=== PATIENT | female | born 2000 | race Caucasian/White ===

== ENCOUNTER 2020-07-01 01:04 | Inpatient (IN) | payer MEDICAID ==
[2020-07-01] MEDS ORDERED: Penicillin G Potassium 5 MILLUNITS in Sodium Chloride 0.9% 50 ML IV ONE (02:30)
[2020-07-01] MEDS: Lactated Ringers 1,000 ML IV SCH ×2 (02:39→11:49)
[2020-07-01] MEDS ORDERED: Sodium Chloride 0.9% 50 ML ONE (06:15)
[2020-07-01] MEDS: Penicillin G Potassium 2.5 MILLUNITS in Sodium Chloride 0.9% 50 ML IV SCH ×4 (06:24→18:49)
[2020-07-01] MEDS ORDERED: Sodium Chloride 0.9% 10 ML Syringe FLUSH PRN ×2 (07:20→08:21)
[2020-07-01] MEDS ORDERED: Calcium Carbonate 500 MG Tab.Chew PO PRN (07:20)
[2020-07-01] MEDS ORDERED: Ondansetron 4 MG/2 ML SDV IV PRN (07:20)
--- NOTE | 2020-07-01 07:32 | PCM.LDHP ---
L&D History of Present Illness - General Date of Service: 07/01/20 Admit Problem/Dx: Patient Status Order with Admit Dx/Problem 07/01/20 02:00 Admission Status [Patient Status] [ADT] Routine Admission Diagnosis/Problem Admission Diagnosis/Problem Labor established Source of Information: Patient History Limitations: Reports: No Limitations - History of Present Illness Introduction:: 07/01/20 Alma is a 20 yo here with SROM at home around midnight today at 40 0/7 weeks gestation. She started sarah about 45 minutes after SROM at home. Clear fluid. She has had an uncomplicated . Her significant other is here by her side. She has a hemoglobin of 11.6. She is COVID negative and GBS positive and has received one dose of antibiotics so far. Blood type is A positive, all STI screenings negative, rubella immune. They are expecting a boy. US was done at 36 weeks and showed baby at 38%. She is doing very well using the tub and nitrous for pain relief. She would like an epidural at some point. Timing/Duration: Reports: minutes: (2-3) Location, : Reports: Abdomen, Lower back Quality: Reports: Pressure Severity: Moderate Improves with: Reports: Rest, Other (Nitrous oxide) Worsens with: Reports: None Associated Symptoms: Reports: vaginal fluid. Denies: vaginal bleeding - Related Data Allergies/Adverse Reactions: Allergies Allergy/AdvReac Type Severity Reaction Status Date / Time No Known Allergies Allergy Verified 07/01/20 02:26 Home Medications: Home Meds Magnesium 250 mg PO DAILY 07/01/20 [History] Vits #93/Iron Fum/FA [ Formula Tablet] 1 each PO DAILY 07/01/20 [History] Past Medical History HEENT History: Reports: None Cardiovascular History: Reports: None Respiratory History: Reports: None Gastrointestinal History: Reports: None Genitourinary History: Reports: None BREAKFAST HOSTESS History: Reports: : 1 Para: 0 LMP (Approximate): Musculoskeletal History: Reports: None Neurological History: Reports: None Psychiatric History: Reports: None Endocrine/Metabolic History: Reports: None Hematologic History: Reports: None Immunologic History: Reports: None Oncologic (Cancer) History: Reports: None Dermatologic History: Reports: None - Infectious Disease History Infectious Disease History: Reports: None - Past Surgical History Head Surgeries/Procedures: Reports: None HEENT Surgical History: Reports: None Cardiovascular Surgical History: Reports: None Respiratory Surgical History: Reports: None GI Surgical History: Reports: None Female Surgical History: Reports: None Endocrine Surgical History: Reports: None Neurological Surgical History: Reports: None Musculoskeletal Surgical History: Reports: None Oncologic Surgical History: Reports: None Dermatological Surgical History: Reports: None Social & Family History - Tobacco Use Tobacco Use Status *Q: Never Tobacco User Second Hand Smoke Exposure: No - Caffeine Use Caffeine Use: Reports: Coffee, Energy Drinks, Soda, Tea - Recreational Drug Use Recreational Drug Use: No H&P Review of Systems - Review of Systems: Review Of Systems: See Below General: Reports: No Symptoms HEENT: Reports: No Symptoms Pulmonary: Reports: No Symptoms Cardiovascular: Reports: No Symptoms Gastrointestinal: Reports: No Symptoms Genitourinary: Reports: No Symptoms Musculoskeletal: Reports: No Symptoms Skin: Reports: No Symptoms Psychiatric: Reports: No Symptoms Neurological: Reports: No Symptoms Hematologic/Lymphatic: Reports: No Symptoms Immunologic: Reports: No Symptoms L&D Exam - Exam Exam: See Below - Vital Signs Vital Signs: Last Vital Signs Temp 35.7 C L 07/01/20 06:47 Pulse 84 07/01/20 06:47 Resp 18 07/01/20 06:47 BP 134/88 07/01/20 06:47 Pulse Ox 98 07/01/20 06:47 Weight: 119.295 kg - OB Specific Contraction Duration (sec): 50-100 Contraction Frequency (min): 1.5-2.5 Contraction Intensity: Moderate Movement: Active Heart Tones: Present Heart Tones per Min: 140 Heart Rate (FHR) Variability: Moderate (6-25 bmp) Presentation: Vertex Estimated Weight: 7.5 lbs - Exam General: Alert, Oriented HEENT: PERRLA, Conjunctiva Clear, EACs Clear, Hearing Intact, Mucosa Moist & [place], Nares Patent, Normal Nasal Septum, Pupils Equal, Pupils Reactive Neck: Supple, Trachea Midline Lungs: Clear to Auscultation, Normal Respiratory Effort Cardiovascular: Regular Rate, Regular Rhythm. No: Systolic Murmur, Diastolic Murmur GI/Abdominal Exam: Normal Bowel Sounds, Soft, Non-Tender, No Organomegaly, No Distention, No Abnormal Bruit, No Mass, Pelvis Stable Rectal Exam: Normal Exam Genitourinary: Normal external exam, Normal bimanual exam, Cervical dilitation, Enlarged uterus Back Exam: Normal Inspection, Full Range of Motion Extremities: Normal Inspection, Normal Range of Motion, Non-Tender, No Pedal Edema, Normal Capillary Refill Skin: Warm, Dry, Intact Neurological: Cranial Nerves Intact Psychiatric: Alert, Normal Affect, Normal Mood - Patient Data Lab Results Last 24 hrs: Laboratory Results - last 24 hr 07/01/20 07/01/20 07/01/20 Range/Units 01:10 01:10 01:56 WBC (4.5-11.0) K/uL RBC (3.30-5.50) M/uL Hgb (12.0-15.0) g/dL Hct (36.0-48.0) % MCV (80-98) fL MCH (27-31) pg MCHC (32-36) % Plt Count (150-400) K/uL Neut % (Auto) (36-66) % Lymph % (Auto) (24-44) % Gage % (Auto) (2-6) % Eos % (Auto) (2-4) % Baso % (Auto) (0-1) % Urine Color Yellow (YELLOW) Urine Appearance Cloudy A (CLEAR) Urine pH 7.0 (5.0-8.0) Ur Specific [place] 1.020 (1.008-1.030) Urine Protein 30 H (NEGATIVE) mg/dL Urine Glucose (UA) Negative (NEGATIVE) mg/dL Urine Ketones Negative (NEGATIVE) mg/dL Urine Occult Blood Moderate H (NEGATIVE) Urine Nitrite Negative (NEGATIVE) Urine Bilirubin Negative (NEGATIVE) Urine Urobilinogen 0.2 (0.2-1.0) EU/dL Ur Leukocyte Esterase Negative (NEGATIVE) Urine RBC 30-40 H (0-5) Urine WBC 5-10 H (0-5) Ur Epithelial Cells Many Amorphous Sediment Not seen Urine Bacteria Moderate Urine Mucus Not seen Membrane Rupture Positive H (NEGATIVE) Urine Opiates Screen Negative (NEGATIVE) Ur Oxycodone Screen Negative (NEGATIVE) Urine Methadone Screen Negative (NEGATIVE) Ur Propoxyphene Screen Negative (NEGATIVE) Ur Barbiturates Screen Negative (NEGATIVE) Ur Tricyclics Screen Negative (NEGATIVE) Ur Phencyclidine Scrn Negative (NEGATIVE) Ur Amphetamine Screen Negative (NEGATIVE) U Methamphetamines Scrn Negative (NEGATIVE) Urine MDMA Screen Negative (NEGATIVE) U Benzodiazepines Scrn Negative (NEGATIVE) U Cocaine Metab Screen Negative (NEGATIVE) U Marijuana (THC) Screen Negative (NEGATIVE) SARS CoV-2 RNA Rapid CARMELA 07/01/20 07/01/20 Range/Units 02:03 02:41 WBC 12.3 H (4.5-11.0) K/uL RBC 4.07 (3.30-5.50) M/uL Hgb 11.6 L (12.0-15.0) g/dL Hct 35.8 L (36.0-48.0) % MCV 88 (80-98) fL MCH 29 (27-31) pg MCHC 32 (32-36) % Plt Count 207 (150-400) K/uL Neut % (Auto) 78 H (36-66) % Lymph % (Auto) 13 L (24-44) % Gage % (Auto) 6 (2-6) % Eos % (Auto) 2 (2-4) % Baso % (Auto) 0 (0-1) % Urine Color (YELLOW) Urine Appearance (CLEAR) Urine pH (5.0-8.0) Ur Specific [place] (1.008-1.030) Urine Protein (NEGATIVE) mg/dL Urine Glucose (UA) (NEGATIVE) mg/dL Urine Ketones (NEGATIVE) mg/dL Urine Occult Blood (NEGATIVE) Urine Nitrite (NEGATIVE) Urine Bilirubin (NEGATIVE) Urine Urobilinogen (0.2-1.0) EU/dL Ur Leukocyte Esterase (NEGATIVE) Urine RBC (0-5) Urine WBC (0-5) Ur Epithelial Cells Amorphous Sediment Urine Bacteria Urine Mucus Membrane Rupture (NEGATIVE) Urine Opiates Screen (NEGATIVE) Ur Oxycodone Screen (NEGATIVE) Urine Methadone Screen (NEGATIVE) Ur Propoxyphene Screen (NEGATIVE) Ur Barbiturates Screen (NEGATIVE) Ur Tricyclics Screen (NEGATIVE) Ur Phencyclidine Scrn (NEGATIVE) Ur Amphetamine Screen (NEGATIVE) U Methamphetamines Scrn (NEGATIVE) Urine MDMA Screen (NEGATIVE) U Benzodiazepines Scrn (NEGATIVE) U Cocaine Metab Screen (NEGATIVE) U Marijuana (THC) Screen (NEGATIVE) SARS CoV-2 RNA Rapid CARMELA Negative Result Diagrams: 07/01/20 02:03 - Problem List (1) SROM (spontaneous rupture of membranes) SNOMED Code(s): 110269537 ICD Code: [id number] - Status: Acute Current Visit: Yes (2) Term SNOMED Code(s): 42639416 ICD Code: Z34.90 - ENCNTR FOR SUPRVSN OF NORMAL , UNSP, UNSP TRI MESTER Status: Acute Current Visit: Yes (3) Labor established SNOMED Code(s): 29531707 ICD Code: WPX1843 - Status: Acute Current Visit: Yes Problem List Initiated/Reviewed/Updated: Yes Orders Last 24hrs: Active Orders 24 hr Category Date Time Status Admission Status [Patient Status] [ADT] Routine ADT 07/01/20 02:00 Active Communication Order [RC] ASDIRECTED Care 07/01/20 07:20 Ordered Communication Order [RC] Per Unit Routine Care 07/01/20 06:33 Active Communication Order [RC] Per Unit Routine Care 07/01/20 06:33 Active Communication Order [RC] Per Unit Routine Care 07/01/20 06:33 Active Communication Order [RC] Per Unit Routine Care 07/01/20 06:33 Active Heart Tones [RC] PER UNIT ROUTINE Care 07/01/20 07:20 Ordered Nitrous Oxide Delivery [RC] ASDIRECTED Care 07/01/20 06:33 Active Notify Provider Vital Signs [RC] PRN Care 07/01/20 04:00 Ordered Notify Provider [RC] PRN Care 07/01/20 07:20 Ordered OB Check [OM.PC] Click to Edit Care 07/01/20 01:09 Ordered Oxygen Therapy [RC] ASDIRECTED Care 07/01/20 06:33 Active Pulse Oximetry [RC] ASDIRECTED Care 07/01/20 06:33 Active Up ad Emily [RC] ASDIRECTED Care 07/01/20 07:20 Ordered VTE/DVT Education [RC] Click to Edit Care 07/01/20 07:22 Ordered Verify Patient Consent Obtain [RC] ASDIRECTED Care 07/01/20 06:33 Active Vital Signs [RC] PER UNIT ROUTINE Care 07/01/20 06:33 Active Vital Signs [RC] PER UNIT ROUTINE Care 07/01/20 07:20 Ordered Regular Diet [DIET] Diet 07/01/20 Breakfast Ordered Calcium Carbonate [Tums] Med 07/01/20 07:20 Ordered 1,000 mg PO Q2HR PRN Lactated Ringers [Ringers, Lactated] 1,000 ml Med 07/01/20 02:30 Active IV ASDIRECTED Ondansetron [Zofran] Med 07/01/20 07:20 Ordered 4 mg IV Q4H PRN Oxytocin/Normal Saline [Pitocin in NS 20 Units/1,000 ML Med 07/01/20 07:00 Active ] 20 unit in 1,000 ml IV ONETIME Penicillin G Potassium [Pfizerpen] 2.5 millunits Med 07/01/20 06:30 Active Sodium Chloride 0.9% [Normal Saline] 50 ml IV Q4H Sodium Chloride 0.9% [Saline Flush] Med 07/01/20 07:20 Ordered 10 ml FLUSH ASDIRECTED PRN DVT/VTE Prophylaxis Reflex [OM.PC] Routine Oth 07/01/20 07:20 Ordered Medication Discontinuation Instructions [OM.PC] Routine Oth 07/01/20 06:33 Ordered Saline Lock Insert [OM.PC] Routine Oth 07/01/20 07:20 Ordered Resuscitation Status Routine Resus Stat 07/01/20 07:20 Ordered Medication Orders Calcium Carbonate/Glycine (Tums) 1,000 mg PO Q2HR PRN PRN Reason: Indigestion Penicillin G Potassium 2.5 (millunits/ Sodium Chloride) 50 mls @ 100 mls/hr IV Q4H [facility] Last Admin: 07/01/20 06:24 Dose: 100 mls/hr Documented by: THAD Lactated Ringer's (Ringers, Lactated) 1,000 mls @ 100 mls/hr IV ASDIRECTED [facility] Last Admin: 07/01/20 02:39 Dose: 100 mls/hr Documented by: THAD Oxytocin/Sodium Chloride (Pitocin In Ns 20 Units/1,000 Ml) 20 unit in 1,000 mls @ 999 mls/hr IV ONETIME ONE; Protocol Stop: 07/01/20 08:00 Ondansetron HCl (Zofran) 4 mg IV Q4H PRN PRN Reason: Nausea/Vomiting Sodium Chloride (Saline Flush) 10 ml FLUSH ASDIRECTED PRN PRN Reason: Keep Vein Open Assessment/Plan Comment:: 07/01/20 Assessment: here with SROM of clear fluid and spontaneous labor SVE last 4-5 cm GBS positive A positive blood type Rubella immune HIV/hep C/B/RPR all NR Category 1 tracing Plan: Expectant management Plans epidural, using nitrous oxide now Anticipate of male infant
[2020-07-01] MEDS ORDERED: ePHEDrine 50 MG/ML SDV IVPUSH PRN ×3 (08:21→22:05)
[2020-07-01] MEDS ORDERED: Lactated Ringers 1,000 ML IV ONE (08:21)
[2020-07-01] MEDS ORDERED: Naloxone 0.4 MG/ML SDV IVPUSH PRN ×2 (08:21→22:05)
[2020-07-01] MEDS ORDERED: diphenhydrAMINE 50 MG/ML SDV IVPUSH PRN ×3 (08:21→22:05)
[2020-07-01] MEDS ORDERED: Ropivacaine 100 ML ONE ×2 (08:54→15:32)
--- NOTE | 2020-07-01 10:00 | PCM.PNLD ---
Labor Progress Note - VS & Meds Vital Signs: Last Vital Signs Temp 35.3 C L 07/01/20 09:13 Pulse 84 07/01/20 09:27 Resp 16 07/01/20 09:27 BP 125/73 07/01/20 09:27 Pulse Ox 95 07/01/20 09:27 Active Medications: Current Medications Calcium Carbonate/Glycine (Tums) 1,000 mg PO Q2H PRN PRN Reason: Indigestion Diphenhydramine HCl (Benadryl) 25 mg IVPUSH Q6H PRN PRN Reason: Itching Diphenhydramine HCl (Benadryl) 50 mg IVPUSH Q6H PRN PRN Reason: Itching Ephedrine Sulfate (Ephedrine Sulfate) 10 mg IVPUSH ASDIRECTED PRN PRN Reason: Hypotension Penicillin G Potassium 2.5 (millunits/ Sodium Chloride) 50 mls @ 100 mls/hr IV Q4H [facility] Last Admin: 07/01/20 06:24 Dose: 100 mls/hr Documented by: Lactated Ringer's (Ringers, Lactated) 1,000 mls @ 100 mls/hr IV ASDIRECTED [facility] Last Infusion: 07/01/20 08:00 Dose: 999 mls/hr Documented by: Naloxone HCl (Narcan) 0.1 mg IVPUSH ASDIRECTED PRN PRN Reason: Oversedation Ondansetron HCl (Zofran) 4 mg IV Q4H PRN PRN Reason: Nausea/Vomiting Sodium Chloride (Saline Flush) 10 ml FLUSH ASDIRECTED PRN PRN Reason: Keep Vein Open Discontinued Medications Penicillin G Potassium 5 (millunits/ Sodium Chloride) 50 mls @ 100 mls/hr IV ONETIME ONE Stop: 07/01/20 02:59 Last Admin: 07/01/20 02:36 Dose: 100 mls/hr Documented by: Oxytocin/Sodium Chloride (Pitocin In Ns 20 Units/1,000 Ml) 20 unit in 1,000 mls @ 999 mls/hr IV ONETIME ONE; Protocol Stop: 07/01/20 08:00 Sodium Chloride (Normal Saline) Confirm Administered Dose 50 mls @ as directed .ROUTE .STK-MED ONE Stop: 07/01/20 06:16 Last Admin: 07/01/20 06:25 Dose: Not Given Documented by: Lactated Ringer's (Ringers, Lactated) 1,000 mls @ 999 mls/hr IV .BOLUS ONE Stop: 07/01/20 09:21 Last Admin: 07/01/20 09:01 Dose: 999 mls/hr Documented by: Ropivacaine (Naropin 0.2%) Confirm Administered Dose 100 mls @ as directed .ROUTE .STK-MED ONE Stop: 07/01/20 08:55 - Uterine Contractions Uterine Monitoring Mode: External [place] Contraction Frequency (min): 2-4 Contraction Duration (sec): 40-60 Contraction Intensity: Moderate Uterine Resting Tone: Soft - Monitoring Monitor Mode: External Ultrasound Heart Rate (FHR) Variability: Moderate (6-25 bmp) Accelerations: Present, 15x15 Decelerations: None - Vaginal Exam Dilation (cm): 5-6 Effacement (Percent): 80 Cervical Position: Midposition Sterile Vaginal Exam Performed By: Nasreen Adame - Labor Progress (Free Text) Labor Progress: 07/01/[address] and patient is comfortable on peanut ball. Category 1 tracing. Continue expectant monitoring. Anticipate .
--- NOTE | 2020-07-01 10:26 | ANES ---
DATE OF SERVICE: 07/01/2020 TIME: 8:45. INDICATIONS: I was called to the Labor and Delivery Unit to evaluate Ms. Dueñas for a labor epidural. She is approximately 5 to 6 cm, this is her first baby. Risks and benefits of procedure were explained to the patient, she wished to proceed with labor epidural. TECHNIQUE: She was placed in a sitting position. Her back was prepped x3 with Betadine, 1% lidocaine skin local was used. The epidural was placed at L3-4 using a 17-gauge Tuohy needle in loss of resistance technique. The epidural had very good feel throughout, and the epidural space was easily identified. There was negative CSF, negative blood, and negative paresthesias noted; therefore, a catheter was threaded to 14 cm at the skin. There was negative CSF, negative blood, and negative paresthesias with the catheter. Therefore, the catheter was secured with Tegaderm and tape. A 1.5% lidocaine test dose with epinephrine was given, and this test dose was negative. The catheter was then secured. She was placed in a supine position. A 0.2% ropivacaine bolus of 12 mL given. The bolus had good relief. Therefore, 0.2% ropivacaine drip was started at 12 mL/h. Her vital signs remained stable throughout the procedure and nurse was with me for the entire procedure. We will continue to monitor her throughout her labor and delivery. Ephraim Hua CRNA /[id number]
--- NOTE | 2020-07-01 11:13 | PCM.PNLD ---
Labor Progress Note - VS & Meds Vital Signs: Last Vital Signs Temp 35.3 C L 07/01/20 09:13 Pulse 89 07/01/20 09:48 Resp 16 07/01/20 09:48 BP 125/77 07/01/20 09:48 Pulse Ox 98 07/01/20 09:48 Active Medications: Current Medications Calcium Carbonate/Glycine (Tums) 1,000 mg PO Q2H PRN PRN Reason: Indigestion Diphenhydramine HCl (Benadryl) 25 mg IVPUSH Q6H PRN PRN Reason: Itching Diphenhydramine HCl (Benadryl) 50 mg IVPUSH Q6H PRN PRN Reason: Itching Ephedrine Sulfate (Ephedrine Sulfate) 10 mg IVPUSH ASDIRECTED PRN PRN Reason: Hypotension Penicillin G Potassium 2.5 (millunits/ Sodium Chloride) 50 mls @ 100 mls/hr IV Q4H [facility] Last Admin: 07/01/20 10:36 Dose: 100 mls/hr Documented by: Lactated Ringer's (Ringers, Lactated) 1,000 mls @ 100 mls/hr IV ASDIRECTED [facility] Last Infusion: 07/01/20 08:00 Dose: 999 mls/hr Documented by: Oxytocin/Sodium Chloride (Pitocin In Ns 20 Units/1,000 Ml) 20 unit in 1,000 mls @ 6 mls/hr IV TITRATE [facility]; Protocol Naloxone HCl (Narcan) 0.1 mg IVPUSH ASDIRECTED PRN PRN Reason: Oversedation Ondansetron HCl (Zofran) 4 mg IV Q4H PRN PRN Reason: Nausea/Vomiting Sodium Chloride (Saline Flush) 10 ml FLUSH ASDIRECTED PRN PRN Reason: Keep Vein Open Discontinued Medications Penicillin G Potassium 5 (millunits/ Sodium Chloride) 50 mls @ 100 mls/hr IV ONETIME ONE Stop: 07/01/20 02:59 Last Admin: 07/01/20 02:36 Dose: 100 mls/hr Documented by: Oxytocin/Sodium Chloride (Pitocin In Ns 20 Units/1,000 Ml) 20 unit in 1,000 mls @ 999 mls/hr IV ONETIME ONE; Protocol Stop: 07/01/20 08:00 Sodium Chloride (Normal Saline) Confirm Administered Dose 50 mls @ as directed .ROUTE .STK-MED ONE Stop: 07/01/20 06:16 Last Admin: 07/01/20 06:25 Dose: Not Given Documented by: Lactated Ringer's (Ringers, Lactated) 1,000 mls @ 999 mls/hr IV .BOLUS ONE Stop: 07/01/20 09:21 Last Admin: 07/01/20 09:01 Dose: 999 mls/hr Documented by: Ropivacaine (Naropin 0.2%) Confirm Administered Dose 100 mls @ as directed .ROUTE .STK-MED ONE Stop: 07/01/20 08:55 - Uterine Contractions Uterine Monitoring Mode: External [place] Contraction Frequency (min): 3 Contraction Duration (sec): 50-70 Contraction Intensity: Moderate Uterine Resting Tone: Soft - Monitoring Monitor Mode: External Ultrasound Heart Rate (FHR) Variability: Moderate (6-25 bmp) Accelerations: Present, 15x15 Decelerations: None - Vaginal Exam Dilation (cm): 7 Effacement (Percent): 80 Station: -1 Cervical Position: Midposition Sterile Vaginal Exam Performed By: Nasreen Adame - Labor Progress (Free Text) Labor Progress: 07/01/20 Patient is comfortable with epidural. SVE 7/80/-1 with some caput noted. Contractions are not regularly spaced and she has made slow cervical exchange administrator the last 3 hours so we discussed doing very low dose pitocin to get a nice contraction pattern and patient agrees. Continues to leak clear fluid. Category 1 tracing still with intermittent possible shallow variable decelerations. Continue to monitor progress and FHT's.
--- NOTE | 2020-07-01 11:57 | PCM.PNLD ---
Labor Progress Note - VS & Meds Vital Signs: Last Vital Signs Temp 35.3 C L 07/01/20 09:13 Pulse 89 07/01/20 09:48 Resp 16 07/01/20 09:48 BP 125/77 07/01/20 09:48 Pulse Ox 98 07/01/20 09:48 Active Medications: Current Medications Calcium Carbonate/Glycine (Tums) 1,000 mg PO Q2H PRN PRN Reason: Indigestion Diphenhydramine HCl (Benadryl) 25 mg IVPUSH Q6H PRN PRN Reason: Itching Diphenhydramine HCl (Benadryl) 50 mg IVPUSH Q6H PRN PRN Reason: Itching Ephedrine Sulfate (Ephedrine Sulfate) 10 mg IVPUSH ASDIRECTED PRN PRN Reason: Hypotension Penicillin G Potassium 2.5 (millunits/ Sodium Chloride) 50 mls @ 100 mls/hr IV Q4H COUNTS INCLUDE 234 BEDS AT THE [facility] Last Admin: 07/01/20 10:36 Dose: 100 mls/hr Documented by: Lactated Ringer's (Ringers, Lactated) 1,000 mls @ 100 mls/hr IV ASDIRECTED COUNTS INCLUDE 234 BEDS AT THE [facility] Last Admin: 07/01/20 11:49 Dose: 25 mls/hr Documented by: Oxytocin/Sodium Chloride (Pitocin In Ns 20 Units/1,000 Ml) 20 unit in 1,000 mls @ 6 mls/hr IV TITRATE COUNTS INCLUDE 234 BEDS AT THE [facility]; Protocol Last Admin: 07/01/20 11:16 Dose: 2 munits/min, 6 mls/hr Documented by: Naloxone HCl (Narcan) 0.1 mg IVPUSH ASDIRECTED PRN PRN Reason: Oversedation Ondansetron HCl (Zofran) 4 mg IV Q4H PRN PRN Reason: Nausea/Vomiting Sodium Chloride (Saline Flush) 10 ml FLUSH ASDIRECTED PRN PRN Reason: Keep Vein Open Discontinued Medications Penicillin G Potassium 5 (millunits/ Sodium Chloride) 50 mls @ 100 mls/hr IV ONETIME ONE Stop: 07/01/20 02:59 Last Admin: 07/01/20 02:36 Dose: 100 mls/hr Documented by: Oxytocin/Sodium Chloride (Pitocin In Ns 20 Units/1,000 Ml) 20 unit in 1,000 mls @ 999 mls/hr IV ONETIME ONE; Protocol Stop: 07/01/20 08:00 Sodium Chloride (Normal Saline) Confirm Administered Dose 50 mls @ as directed .ROUTE .STK-MED ONE Stop: 07/01/20 06:16 Last Admin: 07/01/20 06:25 Dose: Not Given Documented by: Lactated Ringer's (Ringers, Lactated) 1,000 mls @ 999 mls/hr IV .BOLUS ONE Stop: 07/01/20 09:21 Last Admin: 07/01/20 09:01 Dose: 999 mls/hr Documented by: Ropivacaine (Naropin 0.2%) Confirm Administered Dose 100 mls @ as directed .ROUTE .STK-MED ONE Stop: 07/01/20 08:55 - Uterine Contractions Uterine Monitoring Mode: External [place] Contraction Frequency (min): 3 Contraction Duration (sec): 50-70 Contraction Intensity: Moderate Uterine Resting Tone: Soft - Monitoring Monitor Mode: External Ultrasound Heart Rate (FHR) Variability: Moderate (6-25 bmp) Accelerations: Present, 15x15 Decelerations: None - Vaginal Exam Dilation (cm): 7 Effacement (Percent): 80 Station: -1 Cervical Position: Midposition Sterile Vaginal Exam Performed By: Nasreen Adame - Labor Progress (Free Text) Labor Progress: 07/01/20 RN called shortly after pitocin was started reporting late decelerations. Pitocin was turned off, patient rolled, oxygen on and fluid bolus given. No decelerations now after pitocin was discontinued. Continue to have good variability with accelerations. IUPC placed due to difficult time picking up contractions due to body habitus and needing to be able to accurately monitor decelerations. If contractions are adequate will continue with no medications. If they are not consider trying pitocin again after an hour.
[2020-07-01] MEDS ORDERED: Ropivacaine 200 MG in Premix Bag 1 BAG EPIDUR SCH (15:45)
[2020-07-01] MEDS ORDERED: Acetaminophen 325 MG Tab PO PRN (16:15)
--- NOTE | 2020-07-01 19:01 | PCM.PNLD ---
Labor Progress Note - VS & Meds Vital Signs: Last Vital Signs Temp 36.1 C 07/01/20 15:00 Pulse 88 07/01/20 15:00 Resp 16 07/01/20 15:00 BP 120/65 07/01/20 15:00 Pulse Ox 98 07/01/20 15:00 Active Medications: Current Medications Acetaminophen (Tylenol) 650 mg PO Q4H PRN PRN Reason: Headache Last Admin: 07/01/20 16:31 Dose: 650 mg Documented by: Calcium Carbonate/Glycine (Tums) 1,000 mg PO Q2H PRN PRN Reason: Indigestion Diphenhydramine HCl (Benadryl) 25 mg IVPUSH Q6H PRN PRN Reason: Itching Diphenhydramine HCl (Benadryl) 50 mg IVPUSH Q6H PRN PRN Reason: Itching Ephedrine Sulfate (Ephedrine Sulfate) 10 mg IVPUSH ASDIRECTED PRN PRN Reason: Hypotension Penicillin G Potassium 2.5 (millunits/ Sodium Chloride) 50 mls @ 100 mls/hr IV Q4H JENNIFER Last Admin: 07/01/20 18:49 Dose: 100 mls/hr Documented by: Lactated Ringer's (Ringers, Lactated) 1,000 mls @ 100 mls/hr IV ASDIRECTED JENNIFER Last Infusion: 07/01/20 18:43 Dose: 25 mls/hr Documented by: Oxytocin/Sodium Chloride (Pitocin In Ns 20 Units/1,000 Ml) 20 unit in 1,000 mls @ 6 mls/hr IV TITRATE JENNIFER; Protocol Last Titration: 07/01/20 16:20 Dose: 2 munits/min, 6 mls/hr Documented by: Ropivacaine 200 mg/ Premix 100 mls @ 12 mls/hr EPIDUR ASDIRECTED JENNIFER Last Admin: 07/01/20 15:38 Dose: 12 mls/hr Documented by: Naloxone HCl (Narcan) 0.1 mg IVPUSH ASDIRECTED PRN PRN Reason: Oversedation Ondansetron HCl (Zofran) 4 mg IV Q4H PRN PRN Reason: Nausea/Vomiting Sodium Chloride (Saline Flush) 10 ml FLUSH ASDIRECTED PRN PRN Reason: Keep Vein Open Discontinued Medications Penicillin G Potassium 5 (millunits/ Sodium Chloride) 50 mls @ 100 mls/hr IV ONETIME ONE Stop: 07/01/20 02:59 Last Admin: 07/01/20 02:36 Dose: 100 mls/hr Documented by: Oxytocin/Sodium Chloride (Pitocin In Ns 20 Units/1,000 Ml) 20 unit in 1,000 mls @ 999 mls/hr IV ONETIME ONE; Protocol Stop: 07/01/20 08:00 Sodium Chloride (Normal Saline) Confirm Administered Dose 50 mls @ as directed .ROUTE .STK-MED ONE Stop: 07/01/20 06:16 Last Admin: 07/01/20 06:25 Dose: Not Given Documented by: Lactated Ringer's (Ringers, Lactated) 1,000 mls @ 999 mls/hr IV .BOLUS ONE Stop: 07/01/20 09:21 Last Admin: 07/01/20 09:01 Dose: 999 mls/hr Documented by: Ropivacaine (Naropin 0.2%) Confirm Administered Dose 100 mls @ as directed .ROUTE .STK-MED ONE Stop: 07/01/20 08:55 Ropivacaine (Naropin 0.2%) Confirm Administered Dose 100 mls @ as directed .ROUTE .STK-MED ONE Stop: 07/01/20 15:33 Last Admin: 07/01/20 15:38 Dose: Not Given Documented by: - Uterine Contractions Uterine Monitoring Mode: IUPC Contraction Frequency (min): 2.5-5 Contraction Duration (sec): 50-70 Contraction Intensity: Moderate to Strong Uterine Resting Tone: Soft - Monitoring Monitor Mode: External Ultrasound Heart Rate (FHR) Variability: Moderate (6-25 bmp) Accelerations: Present, 15x15 Decelerations: None Strip Review: Category I - Vaginal Exam Dilation (cm): 9 Effacement (Percent): 100 Station: 0 Cervical Position: Midposition Sterile Vaginal Exam Performed By: Nasreen Adame - Labor Progress (Free Text) Labor Progress: 07/01/20 Patient has made very slow cervical change. We have an IUPC in and have had adequate contractions since about 1600. Low dose pitocin only due to baby having low tolerance for any changes. Resting tone on IUPC has been difficult to zero today with position changes but with palpation uterus is resting between contractions. Continue to have category 1 strip now. We have had some decelerations through out labor that have corrected with interventions. Rolled patient to hands and knees and she changed to 9 cm with that rotation and has pressure. Continue to monitor and anticipate unless no cervical change or distress.
[2020-07-01] MEDS ORDERED: Sodium Chloride 0.9% 20 ML ONE (19:51)
[2020-07-01] MEDS ORDERED: Bupivacaine 0.5% 30 ML SDV ONE (19:51)
[2020-07-01] MEDS ORDERED: Terbutaline 1 MG/ML SDV SUBCUT ONE (21:00)
[2020-07-01] MEDS ORDERED: Terbutaline 1 MG/ML SDV ONE (21:00)
[2020-07-01] MEDS ORDERED: fentaNYL 250 MCG/5 ML SDV ONE (21:19)
[2020-07-01] MEDS ORDERED: Midazolam 1 MG/ML 2 ML SDV ONE (21:19)
[2020-07-01] MEDS ORDERED: Oxytocin 10 Units/1 ML SDV ONE (21:21)
[2020-07-01] MEDS ORDERED: Bisacodyl 10 MG Supp RECTAL PRN (22:05)
[2020-07-01] MEDS ORDERED: Benzocaine 20% Top Spray 56 GM Bottle TOP ONE (22:05)
[2020-07-01] MEDS ORDERED: Simethicone 80 MG Tab.Chew PO PRN (22:05)
[2020-07-01] MEDS ORDERED: Witch Hazel Medicated Pads 100/Jar TOP ONE (22:05)
[2020-07-01] MEDS ORDERED: Lanolin 100% Cream 40 GM Tube TOP ONE (22:05)
[2020-07-01] MEDS ORDERED: Ondansetron 4 MG Tab.DIS PO PRN (22:05)
[2020-07-01] MEDS ORDERED: cefOXitin 2 GM Vial ONE (22:07)
[2020-07-01] MEDS ORDERED: Propofol 200 MG/20 ML SDV ONE (22:07)
[2020-07-01] MEDS ORDERED: Succinylcholine 200 MG/10 ML MDV ONE (22:07)
[2020-07-01] MEDS ORDERED: Ondansetron 4 MG/2 ML SDV ONE (22:07)
[2020-07-01] MEDS ORDERED: Dexamethasone 4 MG/ML SDV ONE (22:07)
[2020-07-01] MEDS ORDERED: Glycopyrrolate 0.2 MG/ML 5 ML MDV ONE (22:07)
[2020-07-01] MEDS ORDERED: Neostigmine Methylsulfate 1 MG/ML 5 ML Syringe ONE (22:07)
[2020-07-01] MEDS ORDERED: Rocuronium 50 MG/5 ML Vial ONE (22:07)
[2020-07-01] MEDS ORDERED: Lactated Ringers 1,000 ML ONE (22:07)
[2020-07-01] MEDS ORDERED: fentaNYL 100 MCG/2 ML SDV ONE (22:13)
[2020-07-01] MEDS ORDERED: fentaNYL 100 MCG/2 ML SDV IVPUSH ONE (22:35)
--- NOTE | 2020-07-01 23:43 | PCM.PNLD ---
Labor Progress Note - VS & Meds Vital Signs: Last Vital Signs Temp 35.9 C L 07/01/20 22:55 Pulse 87 07/01/20 22:55 Resp 16 07/01/20 22:55 BP 137/82 07/01/20 22:55 Pulse Ox 94 L 07/01/20 22:55 Active Medications: Current Medications Acetaminophen (Tylenol) 650 mg PO Q4H PRN PRN Reason: Headache Last Admin: 07/01/20 16:31 Dose: 650 mg Documented by: Hydrocodone Bitart/Acetaminophen ([place] 325-5 Mg) 1 tab PO Q4H PRN PRN Reason: Pain (moderate 4-6) Bisacodyl (Dulcolax) 10 mg RECTAL BID PRN PRN Reason: Constipation Calcium Carbonate/Glycine (Tums) 1,000 mg PO Q2H PRN PRN Reason: Indigestion Diphenhydramine HCl (Benadryl) 25 mg IVPUSH Q6H PRN PRN Reason: Itching Diphenhydramine HCl (Benadryl) 50 mg IVPUSH Q6H PRN PRN Reason: Itching Diphenhydramine HCl (Benadryl) 25 mg IVPUSH Q6H PRN PRN Reason: Itching or Nausea Ephedrine Sulfate (Ephedrine Sulfate) 10 mg IVPUSH ASDIRECTED PRN PRN Reason: Hypotension Ephedrine Sulfate (Ephedrine Sulfate) 5 mg IVPUSH ASDIRECTED PRN PRN Reason: Other Penicillin G Potassium 2.5 (millunits/ Sodium Chloride) 50 mls @ 100 mls/hr IV Q4H JENNIFER Last Admin: 07/01/20 18:49 Dose: 100 mls/hr Documented by: Lactated Ringer's (Ringers, Lactated) 1,000 mls @ 100 mls/hr IV ASDIRECTED JENNIFER Last Infusion: 07/01/20 18:43 Dose: 25 mls/hr Documented by: Oxytocin/Sodium Chloride (Pitocin In Ns 20 Units/1,000 Ml) 20 unit in 1,000 mls @ 6 mls/hr IV TITRATE JENNIFER; Protocol Last Titration: 07/01/20 20:50 Dose: 0 munits/min, 0 mls/hr Documented by: Ropivacaine 200 mg/ Premix 100 mls @ 12 mls/hr EPIDUR ASDIRECTED [facility] Last Infusion: 07/01/20 19:55 Dose: 15 mls/hr Documented by: Ibuprofen (Motrin) 800 mg PO Q8H PRN PRN Reason: mild pain or fever Naloxone HCl (Narcan) 0.1 mg IVPUSH ASDIRECTED PRN PRN Reason: Oversedation Naloxone HCl (Narcan) 0.1 mg IVPUSH ASDIRECTED PRN PRN Reason: Respiratory Depression Ondansetron HCl (Zofran) 4 mg IV Q4H PRN PRN Reason: Nausea/Vomiting Ondansetron HCl (Zofran Odt) 8 mg PO Q6H PRN PRN Reason: Nausea/Vomiting Prenat Multivit/[employer]/Iron/Folic Ac ( Plus Iron) 1 each PO DAILY [facility] Simethicone (Simethicone) 80 mg PO Q4H PRN PRN Reason: Gas Sodium Chloride (Saline Flush) 10 ml FLUSH ASDIRECTED PRN PRN Reason: Keep Vein Open Discontinued Medications Benzocaine (Ctme-O-Qjmwvtj 20% [place]) 0 gm TOP Q4H ONE Stop: 07/01/20 22:06 Bupivacaine HCl (Marcaine 0.5%) Confirm Administered Dose 30 ml .ROUTE .STK-MED ONE Stop: 07/01/20 19:52 Cefoxitin Sodium (Mefoxin) Confirm Administered Dose 2 gm .ROUTE .STK-MED ONE Stop: 07/01/20 22:08 Dexamethasone (Decadron) Confirm Administered Dose 4 mg .ROUTE .STK-MED ONE Stop: 07/01/20 22:08 Emollient Ointment (Lansinoh Hpa) 40 gm TOP ASDIRECTED ONE Stop: 07/01/20 22:06 Fentanyl (Sublimaze) Confirm Administered Dose 250 mcg .ROUTE .STK-MED ONE Stop: 07/01/20 21:20 Fentanyl (Sublimaze) Confirm Administered Dose 100 mcg .ROUTE .STK-MED ONE Stop: 07/01/20 22:14 Fentanyl (Sublimaze) 50 mcg IVPUSH ONETIME ONE Stop: 07/01/20 22:36 Last Admin: 07/01/20 22:45 Dose: 50 mcg Documented by: Glycopyrrolate (Robinul) Confirm Administered Dose 1 mg .ROUTE .STK-MED ONE Stop: 07/01/20 22:08 Penicillin G Potassium 5 (millunits/ Sodium Chloride) 50 mls @ 100 mls/hr IV ONETIME ONE Stop: 07/01/20 02:59 Last Admin: 07/01/20 02:36 Dose: 100 mls/hr Documented by: Oxytocin/Sodium Chloride (Pitocin In Ns 20 Units/1,000 Ml) 20 unit in 1,000 mls @ 999 mls/hr IV ONETIME ONE; Protocol Stop: 07/01/20 08:00 Sodium Chloride (Normal Saline) Confirm Administered Dose 50 mls @ as directed .ROUTE .STK-MED ONE Stop: 07/01/20 06:16 Last Admin: 07/01/20 06:25 Dose: Not Given Documented by: Lactated Ringer's (Ringers, Lactated) 1,000 mls @ 999 mls/hr IV .BOLUS ONE Stop: 07/01/20 09:21 Last Admin: 07/01/20 09:01 Dose: 999 mls/hr Documented by: Ropivacaine (Naropin 0.2%) Confirm Administered Dose 100 mls @ as directed .ROUTE .STK-MED ONE Stop: 07/01/20 08:55 Ropivacaine (Naropin 0.2%) Confirm Administered Dose 100 mls @ as directed .ROUTE .STK-MED ONE Stop: 07/01/20 15:33 Last Admin: 07/01/20 15:38 Dose: Not Given Documented by: Sodium Chloride (Normal Saline) Confirm Administered Dose 20 mls @ as directed .ROUTE .STK-MED ONE Stop: 07/01/20 19:52 Lactated Ringer's (Ringers, Lactated) Confirm Administered Dose 1,000 mls @ as directed .ROUTE .STK-MED ONE Stop: 07/01/20 22:08 Midazolam HCl (Versed 1 Mg/Ml) Confirm Administered Dose 2 mg .ROUTE .STK-MED ONE Stop: 07/01/20 21:20 Neostigmine Methylsulfate (Neostigmine) Confirm Administered Dose 5 mg .ROUTE .STK-MED ONE Stop: 07/01/20 22:08 Ondansetron HCl (Zofran) Confirm Administered Dose 4 mg .ROUTE .STK-MED ONE Stop: 07/01/20 22:08 Oxytocin (Pitocin) Confirm Administered Dose 30 unit .ROUTE .STK-MED ONE Stop: 07/01/20 21:22 Last Admin: 07/01/20 21:32 Dose: 10 unit Documented by: Propofol (Diprivan 20 Ml) Confirm Administered Dose 200 mg .ROUTE .STK-MED ONE Stop: 07/01/20 22:08 Rocuronium [place] (Zemuron) Confirm Administered Dose 50 mg .ROUTE .STK-MED ONE Stop: 07/01/20 22:08 Succinylcholine Chloride (Quelicin) Confirm Administered Dose 200 mg .ROUTE .STK-MED ONE Stop: 07/01/20 22:08 Terbutaline Sulfate (Brethine) Confirm Administered Dose 1 mg .ROUTE .STK-MED ONE Stop: 07/01/20 21:01 Yuko Ocampo (Anil) 1 pad TOP ASDIRECTED ONE Stop: 07/01/20 22:06 - Uterine Contractions Uterine Monitoring Mode: IUPC Contraction Frequency (min): 2-4 Contraction Duration (sec): 40-60 Contraction Intensity: Moderate to Strong Uterine Resting Tone: Soft - Monitoring Monitor Mode: External Ultrasound Heart Rate (FHR) Variability: Marked (>25 bpm) Accelerations: Present, 15x15 Decelerations: Variable, Recurrent (>50% x 20 min) Strip Review: Category III - Vaginal Exam Dilation (cm): 9 Effacement (Percent): 100 Station: 0 Cervical Position: Midposition Sterile Vaginal Exam Performed By: Nasreen Adame - Labor Progress (Free Text) Labor Progress: 07/01/20 Attempted to increase pitocin from 2 mu to 3 mu due to failure to progress with little to no cervical change, at the time we had a category 1 tracing. Baby did not tolerate the change. Interventions included oxygen, fluid bolus, several position changes, stopping pitocin. Terbutaline was given sub Q and section called at 2053 for category 3 tracing. Patient and significant other were counseled and agree. See baby chart for further.
[2020-07-02] MEDS: Ibuprofen 800 MG Tab PO PRN ×2 (01:17→16:47)
[2020-07-02] MEDS: Penicillin G Potassium 2.5 MILLUNITS in Sodium Chloride 0.9% 50 ML IV SCH ×2 (02:35→06:37)
--- NOTE | 2020-07-02 07:10 | ANES ---
DATE OF SERVICE: 07/01/2020 TIME: 1954 hours. I was called to the Labor and Delivery Unit to evaluate Ms. Dueñas for a rebolus of her epidural. Her epidural level has decreased and she wished to be rebolused. I did go ahead and bolus her with 15 mL of 0.25% bupivacaine. I then turned her drip up to 15 mL/hour. She seemed to tolerate that very nicely and got pretty good relief from that, and we will continue to monitor her. Ephraim Hua CRNA /[id number]
[2020-07-02] MEDS: Acetaminophen/HYDROcodone 325-5 MG Tab PO PRN ×4 (07:36→23:09)
[2020-07-02] MEDS: Lactated Ringers 1,000 ML IV SCH (08:05)
[2020-07-02] MEDS: Prenatal Multivitamin with Calcium/Folic Acid/Iron Tab PO SCH (09:23)
--- NOTE | 2020-07-02 09:43 | OR ---
DATE OF PROCEDURE: 07/01/2020 SURGEON: Jimmy Jimenez MD PROCEDURE: section with aftercare. COMPLICATION: None. SNAKER: Nasreen Adame CNM. PREOPERATIVE DIAGNOSIS: Failure to advance with respect to baby and decelerations, requiring stat section. POSTOPERATIVE DIAGNOSIS: Failure to advance with respect to baby and decelerations, requiring stat section. RISK: Risks, benefits, alternatives, and limitations including, but not limited to infection; bleeding; injury to baby, bowel, and bladder; chronic wounds; chronic pain; and other risks not listed here were explained to the patient; and they wished to proceed. PROCEDURE IN DETAIL: The patient was emergently placed in supine position, prepped and draped. Under general anesthetic, a transverse incision was made in a classic Pfannenstiel- type approach. Rapidly, this was carried down with electrocautery through the external oblique aponeurosis. The peritoneum was entered bluntly, and a muscle spreading technique was performed. The uterus was opened bluntly. Bandage scissors were used to open the uterus laterally from the midpoint. The baby was delivered without difficulty. This cord was cut and clamped. The uterus was then closed with three layers of #1 Vicryl in a running locked suture pattern. This was performed after removing the placenta and inspection of the uterus for any retained placenta material, which none was noted. Pitocin was given at this point. The uterus was then placed back in the abdomen after removing clots. The rectus muscles were reapproximated with #1 Vicryl running suture. The fascia was closed with #1 Vicryl suture x2. All layers were irrigated. The skin was closed with 3-0 Vicryl and 4-0 Vicryl in an interrupted running fashion. Dermabond was applied. The patient tolerated the procedure well. Jimmy Jimenez MD /[id number]
--- NOTE | 2020-07-02 10:21 | PN ---
DATE OF SERVICE: 07/02/2020 SUBJECTIVE: The patient is doing very well. Pain is well controlled. No nausea, vomiting, shortness of breath or chest pain. OBJECTIVE: VITAL SIGNS: Stable. She is afebrile. CARDIOVASCULAR: Regular rhythm and rate. RESPIRATORY: Lungs are clear to auscultation bilaterally. SKIN: Incision is healing well. ASSESSMENT: Status post section. PLAN: Remove [place] catheter. Saline lock IV. Continue to work on advancing diet. Jimmy Jimenez MD /[id number]
[2020-07-03] MEDS: Acetaminophen/HYDROcodone 325-5 MG Tab PO PRN ×4 (05:12→20:46)
[2020-07-03] MEDS: Prenatal Multivitamin with Calcium/Folic Acid/Iron Tab PO SCH (08:24)
[2020-07-03] MEDS: Ibuprofen 800 MG Tab PO PRN ×2 (09:50→20:47)
--- NOTE | 2020-07-03 10:37 | PCM.PNPP ---
- General Info Date of Service: 07/03/20 Functional Status: Reports: Pain Controlled, Tolerating Diet, Ambulating, Urinating - Review of Systems General: Reports: Fatigue HEENT: Reports: No Symptoms Pulmonary: Reports: No Symptoms Cardiovascular: Reports: No Symptoms Gastrointestinal: Reports: No Symptoms Genitourinary: Reports: No Symptoms Musculoskeletal: Reports: No Symptoms Skin: Reports: No Symptoms Neurological: Reports: No Symptoms Psychiatric: Reports: No Symptoms - General Info Date of Service: 07/03/20 - Patient Data Vital Signs - Most Recent: Last Vital Signs Temp 36.8 C 07/03/20 07:30 Pulse 96 07/03/20 07:30 Resp 18 07/03/20 07:30 BP 137/83 07/03/20 07:30 Pulse Ox 98 07/03/20 07:30 Weight - Most Recent: 119.295 kg I&O - Last 24 Hours: Intake & Output 07/02/20 07/03/20 07/03/20 22:59 06:59 14:59 Intake Total 1000 1000 Balance 1000 1000 Lab Results - Last 24 Hours: Laboratory Results - last 24 hr 07/03/20 Range/Units 08:31 WBC 11.9 H (4.5-11.0) K/uL RBC 3.28 L (3.30-5.50) M/uL Hgb 9.4 L (12.0-15.0) g/dL Hct 30.0 L (36.0-48.0) % MCV 92 (80-98) fL MCH 29 (27-31) pg MCHC 31 L (32-36) % Plt Count 164 (150-400) K/uL Neut % (Auto) 81 H (36-66) % Lymph % (Auto) 11 L (24-44) % [place] % (Auto) 6 (2-6) % Eos % (Auto) 1 L (2-4) % Baso % (Auto) 0 (0-1) % Med Orders - Current: Current Medications Acetaminophen (Tylenol) 650 mg PO Q4H PRN PRN Reason: Headache Last Admin: 07/01/20 16:31 Dose: 650 mg Documented by: Hydrocodone Bitart/Acetaminophen ([place] 325-5 Mg) 1 tab PO Q4H PRN PRN Reason: Pain (moderate 4-6) Last Admin: 07/03/20 09:51 Dose: 1 tab Documented by: Bisacodyl (Dulcolax) 10 mg RECTAL BID PRN PRN Reason: Constipation Calcium Carbonate/Glycine (Tums) 1,000 mg PO Q2H PRN PRN Reason: Indigestion Diphenhydramine HCl (Benadryl) 50 mg IVPUSH Q6H PRN PRN Reason: Itching Diphenhydramine HCl (Benadryl) 25 mg IVPUSH Q6H PRN PRN Reason: Itching or Nausea Ephedrine Sulfate (Ephedrine Sulfate) 5 mg IVPUSH ASDIRECTED PRN PRN Reason: Other Lactated Ringer's (Ringers, Lactated) 1,000 mls @ 100 mls/hr IV ASDIRECTED [facility] Last Admin: 07/02/20 08:05 Dose: 100 mls/hr Documented by: Ibuprofen (Motrin) 800 mg PO Q8H PRN PRN Reason: mild pain or fever Last Admin: 07/03/20 09:50 Dose: 800 mg Documented by: Naloxone HCl (Narcan) 0.1 mg IVPUSH ASDIRECTED PRN PRN Reason: Respiratory Depression Ondansetron HCl (Zofran) 4 mg IV Q4H PRN PRN Reason: Nausea/Vomiting Ondansetron HCl (Zofran Odt) 8 mg PO Q6H PRN PRN Reason: Nausea/Vomiting Prenat Multivit/[place]/Iron/Folic Ac ( Plus Iron) 1 each PO DAILY [facility] Last Admin: 07/03/20 08:24 Dose: 1 each Documented by: Simethicone (Simethicone) 80 mg PO Q4H PRN PRN Reason: Gas Sodium Chloride (Saline Flush) 10 ml FLUSH ASDIRECTED PRN PRN Reason: Keep Vein Open Discontinued Medications Benzocaine (Qxcr-O-Bqaipvf 20% [place]) 0 gm TOP Q4H ONE Stop: 07/01/20 22:06 Last Admin: 07/02/20 09:14 Dose: Not Given Documented by: Bupivacaine HCl (Marcaine 0.5%) Confirm Administered Dose 30 ml .ROUTE .STK-MED ONE Stop: 07/01/20 19:52 Cefoxitin Sodium (Mefoxin) Confirm Administered Dose 2 gm .ROUTE .STK-MED ONE Stop: 07/01/20 22:08 Dexamethasone (Decadron) Confirm Administered Dose 4 mg .ROUTE .STK-MED ONE Stop: 07/01/20 22:08 Diphenhydramine HCl (Benadryl) 25 mg IVPUSH Q6H PRN PRN Reason: Itching Emollient Ointment (Lansinoh Hpa) 40 gm TOP ASDIRECTED ONE Stop: 07/01/20 22:06 Last Admin: 07/02/20 09:16 Dose: Not Given Documented by: Ephedrine Sulfate (Ephedrine Sulfate) 10 mg IVPUSH ASDIRECTED PRN PRN Reason: Hypotension Fentanyl (Sublimaze) Confirm Administered Dose 250 mcg .ROUTE .STK-MED ONE Stop: 07/01/20 21:20 Fentanyl (Sublimaze) Confirm Administered Dose 100 mcg .ROUTE .STK-MED ONE Stop: 07/01/20 22:14 Fentanyl (Sublimaze) 50 mcg IVPUSH ONETIME ONE Stop: 07/01/20 22:36 Last Admin: 07/01/20 22:45 Dose: 50 mcg Documented by: Glycopyrrolate (Robinul) Confirm Administered Dose 1 mg .ROUTE .STK-MED ONE Stop: 07/01/20 22:08 Penicillin G Potassium 5 (millunits/ Sodium Chloride) 50 mls @ 100 mls/hr IV ONETIME ONE Stop: 07/01/20 02:59 Last Admin: 07/01/20 02:36 Dose: 100 mls/hr Documented by: Penicillin G Potassium 2.5 (millunits/ Sodium Chloride) 50 mls @ 100 mls/hr IV Q4H JENNIFER Last Admin: 07/02/20 06:37 Dose: Not Given Documented by: Oxytocin/Sodium Chloride (Pitocin In Ns 20 Units/1,000 Ml) 20 unit in 1,000 mls @ 999 mls/hr IV ONETIME ONE; Protocol Stop: 07/01/20 08:00 Last Admin: 07/02/20 02:36 Dose: Not Given Documented by: Sodium Chloride (Normal Saline) Confirm Administered Dose 50 mls @ as directed .ROUTE .STK-MED ONE Stop: 07/01/20 06:16 Last Admin: 07/01/20 06:25 Dose: Not Given Documented by: Lactated Ringer's (Ringers, Lactated) 1,000 mls @ 999 mls/hr IV .BOLUS ONE Stop: 07/01/20 09:21 Last Admin: 07/01/20 09:01 Dose: 999 mls/hr Documented by: Ropivacaine (Naropin 0.2%) Confirm Administered Dose 100 mls @ as directed .ROUTE .STK-MED ONE Stop: 07/01/20 08:55 Oxytocin/Sodium Chloride (Pitocin In Ns 20 Units/1,000 Ml) 20 unit in 1,000 mls @ 6 mls/hr IV TITRATE JENNIFER; Protocol Last Titration: 07/01/20 20:50 Dose: 0 munits/min, 0 mls/hr Documented by: Ropivacaine (Naropin 0.2%) Confirm Administered Dose 100 mls @ as directed .ROUTE .STK-MED ONE Stop: 07/01/20 15:33 Last Admin: 07/01/20 15:38 Dose: Not Given Documented by: Ropivacaine 200 mg/ Premix 100 mls @ 12 mls/hr EPIDUR ASDIRECTED JENNIFER Last Infusion: 07/01/20 19:55 Dose: 15 mls/hr Documented by: Sodium Chloride (Normal Saline) Confirm Administered Dose 20 mls @ as directed .ROUTE .STK-MED ONE Stop: 07/01/20 19:52 Lactated Ringer's (Ringers, Lactated) Confirm Administered Dose 1,000 mls @ as directed .ROUTE .STK-MED ONE Stop: 07/01/20 22:08 Midazolam HCl (Versed 1 Mg/Ml) Confirm Administered Dose 2 mg .ROUTE .STK-MED ONE Stop: 07/01/20 21:20 Naloxone HCl (Narcan) 0.1 mg IVPUSH ASDIRECTED PRN PRN Reason: Oversedation Neostigmine Methylsulfate (Neostigmine) Confirm Administered Dose 5 mg .ROUTE .STK-MED ONE Stop: 07/01/20 22:08 Ondansetron HCl (Zofran) Confirm Administered Dose 4 mg .ROUTE .STK-MED ONE Stop: 07/01/20 22:08 Oxytocin (Pitocin) Confirm Administered Dose 30 unit .ROUTE .STK-MED ONE Stop: 07/01/20 21:22 Last Admin: 07/01/20 21:32 Dose: 10 unit Documented by: Propofol (Diprivan 20 Ml) Confirm Administered Dose 200 mg .ROUTE .STK-MED ONE Stop: 07/01/20 22:08 Rocuronium [place] (Zemuron) Confirm Administered Dose 50 mg .ROUTE .STK-MED ONE Stop: 07/01/20 22:08 Succinylcholine Chloride (Quelicin) Confirm Administered Dose 200 mg .ROUTE .STK-MED ONE Stop: 07/01/20 22:08 Terbutaline Sulfate (Brethine) Confirm Administered Dose 1 mg .ROUTE .STK-MED ONE Stop: 07/01/20 21:01 Last Admin: 07/02/20 01:57 Dose: Not Given Documented by: Terbutaline Sulfate (Brethine) 0.25 mg SUBCUT ONETIME ONE Stop: 07/01/20 21:01 Last Admin: 07/02/20 01:56 Dose: 0.25 mg Documented by: Yuko Ng) 1 pad TOP ASDIRECTED ONE Stop: 07/01/20 22:06 Last Admin: 07/02/20 09:16 Dose: Not Given Documented by: - Infant Interaction Disposition, : in Room with Family Infant Interaction: Holding Infant Feeding: Breastfed Infant; Nursed Well Support Person: Significant Other - Recovery Exam Fundal Tone: Firm Fundal Level: 2 Fingerbreadths Below Umbilicus Fundal Placement: Midline Lochia Amount: Small Lochia Color: Rubra/Red Perineum Description: Intact, Minimal Bruising/Swelling Episiotomy/Laceration: None Bladder Status: Voiding Urinary Elimination: Voided - Exam General: Alert, Oriented HEENT: Pupils Equal, Pupils Reactive, Mucous Membr. Moist/[place] Neck: Supple Lungs: Clear to Auscultation, Normal Respiratory Effort Cardiovascular: Regular Rate, Regular Rhythm GI/Abdominal Exam: Normal Bowel Sounds, Soft, No Distention, Pelvis Stable Extremities: Normal Inspection, Normal Range of Motion, Non-Tender, No Pedal Edema, Normal Capillary Refill Skin: Warm, Dry, Intact Wound/Incisions: Healing Well, No Drainage. No: Erythema Neurological: No New Focal Deficit Psy/Mental Status: Alert, Normal Affect, Normal Mood - Problem List & Annotations (1) SROM (spontaneous rupture of membranes) SNOMED Code(s): 639690123 Code(s): WMQ7095 - Status: Acute Current Visit: Yes (2) Term SNOMED Code(s): 11951361 Code(s): Z34.90 - ENCNTR FOR SUPRVSN OF NORMAL , UNSP, UNSP TRIMESTER Status: Acute Current Visit: Yes (3) Labor established SNOMED Code(s): 71679510 Code(s): [id number] - Status: Acute Current Visit: Yes (4) started SNOMED Code(s): 950236900 Code(s): OJD8037 - Status: Acute Current Visit: Yes (5) Status post SNOMED Code(s): 934348117, 050969581 Code(s): Z98.891 - HISTORY OF UTERINE SCAR FROM PREVIOUS SURGERY Status: Acute Current Visit: Yes (6) Morbid obesity with BMI of 45.0-49.9, adult SNOMED Code(s): 655084103, 47950510830644 Code(s): E66.01 - MORBID (SEVERE) OBESITY DUE TO EXCESS CALORIES; Z68.42 - BODY MASS INDEX [BMI] 45.0-49.9, ADULT Status: Chronic Current Visit: No - Problem List Review Problem List Initiated/Reviewed/Updated: Yes - Assessment Assessment:: 07/03/20 Patient doing well and post section FF and bleeding light Up showering today, ambulating without difficulty Pain controlled going better today, mother has a lot of colostrum as well she is expressing CBC looks good, rechecked due to ROM, dysfunctional labor, and concern for possible uterine infection - Plan Plan:: 07/01/20 Assessment: here with SROM of clear fluid and spontaneous labor SVE last 4-5 cm GBS positive A positive blood type Rubella immune HIV/hep C/B/RPR all NR Category 1 tracing Plan: Expectant management Plans epidural, using nitrous oxide now Anticipate of male 07/03/20 Routine cares Ambulate often support Possible discharge tomorrow or Sunday depending on how she is doing
[2020-07-04] MEDS: Acetaminophen/HYDROcodone 325-5 MG Tab PO PRN ×3 (02:54→12:56)
[2020-07-04] MEDS: Ibuprofen 800 MG Tab PO PRN (04:53)
[2020-07-04] MEDS: Prenatal Multivitamin with Calcium/Folic Acid/Iron Tab PO SCH (08:31)
[2020-07-04] MEDS ORDERED: Docusate Sodium 100 MG Cap PO PRN (10:57)
--- NOTE | 2020-07-04 10:57 | PCM.PNPP ---
- General Info Date of Service: 07/04/20 Functional Status: Reports: Pain Controlled - Review of Systems General: Reports: No Symptoms HEENT: Reports: No Symptoms Pulmonary: Reports: No Symptoms Cardiovascular: Reports: No Symptoms Gastrointestinal: Reports: No Symptoms Genitourinary: Reports: No Symptoms Musculoskeletal: Reports: No Symptoms Skin: Reports: No Symptoms Neurological: Reports: No Symptoms Psychiatric: Reports: No Symptoms - General Info Date of Service: 07/04/20 - Patient Data Vital Signs - Most Recent: Last Vital Signs Temp 36.5 C 07/04/20 07:00 Pulse 87 07/04/20 07:00 Resp 18 07/04/20 07:00 BP 129/75 07/04/20 07:00 Pulse Ox 98 07/04/20 07:00 Weight - Most Recent: 119.295 kg Med Orders - Current: Current Medications Acetaminophen (Tylenol) 650 mg PO Q4H PRN PRN Reason: Headache Last Admin: 07/01/20 16:31 Dose: 650 mg Documented by: Hydrocodone Bitart/Acetaminophen (Mcdonough 325-5 Mg) 2 tab PO Q4H PRN PRN Reason: Pain (moderate 4-6) Last Admin: 07/04/20 08:36 Dose: 2 tab Documented by: Bisacodyl (Dulcolax) 10 mg RECTAL BID PRN PRN Reason: Constipation Calcium Carbonate/Glycine (Tums) 1,000 mg PO Q2H PRN PRN Reason: Indigestion Diphenhydramine HCl (Benadryl) 50 mg IVPUSH Q6H PRN PRN Reason: Itching Diphenhydramine HCl (Benadryl) 25 mg IVPUSH Q6H PRN PRN Reason: Itching or Nausea Ephedrine Sulfate (Ephedrine Sulfate) 5 mg IVPUSH ASDIRECTED PRN PRN Reason: Other Lactated Ringer's (Ringers, Lactated) 1,000 mls @ 100 mls/hr IV ASDIRECTED JENNIFER Last Admin: 07/02/20 08:05 Dose: 100 mls/hr Documented by: Ibuprofen (Motrin) 800 mg PO Q8H PRN PRN Reason: mild pain or fever Last Admin: 07/04/20 04:53 Dose: 800 mg Documented by: Naloxone HCl (Narcan) 0.1 mg IVPUSH ASDIRECTED PRN PRN Reason: Respiratory Depression Ondansetron HCl (Zofran) 4 mg IV Q4H PRN PRN Reason: Nausea/Vomiting Ondansetron HCl (Zofran Odt) 8 mg PO Q6H PRN PRN Reason: Nausea/Vomiting Prenat Multivit/[place]/Iron/Folic Ac ( Plus Iron) 1 each PO DAILY JENNIFER Last Admin: 07/04/20 08:31 Dose: 1 each Documented by: Simethicone (Simethicone) 80 mg PO Q4H PRN PRN Reason: Gas Last Admin: 07/03/20 11:44 Dose: 80 mg Documented by: Sodium Chloride (Saline Flush) 10 ml FLUSH ASDIRECTED PRN PRN Reason: Keep Vein Open Discontinued Medications Hydrocodone Bitart/Acetaminophen (Mcdonough 325-5 Mg) 1 tab PO Q4H PRN PRN Reason: Pain (moderate 4-6) Last Admin: 07/03/20 09:51 Dose: 1 tab Documented by: Benzocaine (Pttp-Q-Tcnktrq 20% [place]) 0 gm TOP Q4H ONE Stop: 07/01/20 22:06 Last Admin: 07/02/20 09:14 Dose: Not Given Documented by: Bupivacaine HCl (Marcaine 0.5%) Confirm Administered Dose 30 ml .ROUTE .STK-MED ONE Stop: 07/01/20 19:52 Cefoxitin Sodium (Mefoxin) Confirm Administered Dose 2 gm .ROUTE .STK-MED ONE Stop: 07/01/20 22:08 Dexamethasone (Decadron) Confirm Administered Dose 4 mg .ROUTE .STK-MED ONE Stop: 07/01/20 22:08 Diphenhydramine HCl (Benadryl) 25 mg IVPUSH Q6H PRN PRN Reason: Itching Emollient Ointment (Lansinoh Hpa) 40 gm TOP ASDIRECTED ONE Stop: 07/01/20 22:06 Last Admin: 07/02/20 09:16 Dose: Not Given Documented by: Ephedrine Sulfate (Ephedrine Sulfate) 10 mg IVPUSH ASDIRECTED PRN PRN Reason: Hypotension Fentanyl (Sublimaze) Confirm Administered Dose 250 mcg .ROUTE .STK-MED ONE Stop: 07/01/20 21:20 Fentanyl (Sublimaze) Confirm Administered Dose 100 mcg .ROUTE .STK-MED ONE Stop: 07/01/20 22:14 Fentanyl (Sublimaze) 50 mcg IVPUSH ONETIME ONE Stop: 07/01/20 22:36 Last Admin: 07/01/20 22:45 Dose: 50 mcg Documented by: Glycopyrrolate (Yuan) Confirm Administered Dose 1 mg .ROUTE .STK-MED ONE Stop: 07/01/20 22:08 Penicillin G Potassium 5 (millunits/ Sodium Chloride) 50 mls @ 100 mls/hr IV ONETIME ONE Stop: 07/01/20 02:59 Last Admin: 07/01/20 02:36 Dose: 100 mls/hr Documented by: Penicillin G Potassium 2.5 (millunits/ Sodium Chloride) 50 mls @ 100 mls/hr IV Q4H JENNIFER Last Admin: 07/02/20 06:37 Dose: Not Given Documented by: Oxytocin/Sodium Chloride (Pitocin In Ns 20 Units/1,000 Ml) 20 unit in 1,000 mls @ 999 mls/hr IV ONETIME ONE; Protocol Stop: 07/01/20 08:00 Last Admin: 07/02/20 02:36 Dose: Not Given Documented by: Sodium Chloride (Normal Saline) Confirm Administered Dose 50 mls @ as directed .ROUTE .STK-MED ONE Stop: 07/01/20 06:16 Last Admin: 07/01/20 06:25 Dose: Not Given Documented by: Lactated Ringer's (Ringers, Lactated) 1,000 mls @ 999 mls/hr IV .BOLUS ONE Stop: 07/01/20 09:21 Last Admin: 07/01/20 09:01 Dose: 999 mls/hr Documented by: Ropivacaine (Naropin 0.2%) Confirm Administered Dose 100 mls @ as directed .ROUTE .STK-MED ONE Stop: 07/01/20 08:55 Oxytocin/Sodium Chloride (Pitocin In Ns 20 Units/1,000 Ml) 20 unit in 1,000 mls @ 6 mls/hr IV TITRATE JENNIFER; Protocol Last Titration: 07/01/20 20:50 Dose: 0 munits/min, 0 mls/hr Documented by: Ropivacaine (Naropin 0.2%) Confirm Administered Dose 100 mls @ as directed .ROUTE .STK-MED ONE Stop: 07/01/20 15:33 Last Admin: 07/01/20 15:38 Dose: Not Given Documented by: Ropivacaine 200 mg/ Premix 100 mls @ 12 mls/hr EPIDUR ASDIRECTED JENNIFER Last Infusion: 07/01/20 19:55 Dose: 15 mls/hr Documented by: Sodium Chloride (Normal Saline) Confirm Administered Dose 20 mls @ as directed .ROUTE .STK-MED ONE Stop: 07/01/20 19:52 Lactated Ringer's (Ringers, Lactated) Confirm Administered Dose 1,000 mls @ as directed .ROUTE .STK-MED ONE Stop: 07/01/20 22:08 Midazolam HCl (Versed 1 Mg/Ml) Confirm Administered Dose 2 mg .ROUTE .STK-MED ONE Stop: 07/01/20 21:20 Naloxone HCl (Narcan) 0.1 mg IVPUSH ASDIRECTED PRN PRN Reason: Oversedation Neostigmine Methylsulfate (Neostigmine) Confirm Administered Dose 5 mg .ROUTE .STK-MED ONE Stop: 07/01/20 22:08 Ondansetron HCl (Zofran) Confirm Administered Dose 4 mg .ROUTE .STK-MED ONE Stop: 07/01/20 22:08 Oxytocin (Pitocin) Confirm Administered Dose 30 unit .ROUTE .STK-MED ONE Stop: 07/01/20 21:22 Last Admin: 07/01/20 21:32 Dose: 10 unit Documented by: Propofol (Diprivan 20 Ml) Confirm Administered Dose 200 mg .ROUTE .STK-MED ONE Stop: 07/01/20 22:08 Rocuronium [place] (Zemuron) Confirm Administered Dose 50 mg .ROUTE .STK-MED ONE Stop: 07/01/20 22:08 Succinylcholine Chloride (Quelicin) Confirm Administered Dose 200 mg .ROUTE .STK-MED ONE Stop: 07/01/20 22:08 Terbutaline Sulfate (Brethine) Confirm Administered Dose 1 mg .ROUTE .STK-MED ONE Stop: 07/01/20 21:01 Last Admin: 07/02/20 01:57 Dose: Not Given Documented by: Terbutaline Sulfate (Brethine) 0.25 mg SUBCUT ONETIME ONE Stop: 07/01/20 21:01 Last Admin: 07/02/20 01:56 Dose: 0.25 mg Documented by: Yuko Ng) 1 pad TOP ASDIRECTED ONE Stop: 07/01/20 22:06 Last Admin: 07/02/20 09:16 Dose: Not Given Documented by: - Infant Interaction Infant Disposition, : [place] in Room with Family Infant Interaction: Holding Feeding: Breastfed Infant; Nursed Well Support Person: Significant Other - Recovery Exam Fundal Tone: Firm Fundal Level: 2 Fingerbreadths Below Umbilicus Fundal Placement: Midline Lochia Amount: Small Lochia Color: Rubra/Red Perineum Description: Intact, Minimal Bruising/Swelling Episiotomy/Laceration: None Bladder Status: Voiding Urinary Elimination: Voided - Exam General: Alert, Oriented HEENT: Pupils Equal, Pupils Reactive, Mucous Membr. Moist/[place] Neck: Supple Lungs: Clear to Auscultation, Normal Respiratory Effort Cardiovascular: Regular Rate, Regular Rhythm GI/Abdominal Exam: Normal Bowel Sounds, Soft, Non-Tender, No Distention, No Mass, Pelvis Stable Extremities: Normal Inspection, Normal Range of Motion, Non-Tender, No Pedal Edema, Normal Capillary Refill Skin: Warm, Dry, Intact Wound/Incisions: Healing Well, No Drainage. No: Erythema Neurological: No New Focal Deficit Psy/Mental Status: Alert, Normal Affect, Normal Mood - Problem List & Annotations (1) SROM (spontaneous rupture of membranes) SNOMED Code(s): 156522883 Code(s): MAE3012 - Status: Acute Current Visit: Yes (2) Term SNOMED Code(s): 81015623 Code(s): Z34.90 - ENCNTR FOR SUPRVSN OF NORMAL , UNSP, UNSP TRIMESTER Status: Acute Current Visit: Yes (3) Labor established SNOMED Code(s): 81926485 Code(s): TSV4767 - Status: Acute Current Visit: Yes (4) started SNOMED Code(s): 085987038 Code(s): OGR7176 - Status: Acute Current Visit: Yes (5) Status post SNOMED Code(s): 943537465, 937655352 Code(s): Z98.891 - HISTORY OF UTERINE SCAR FROM PREVIOUS SURGERY Status: Acute Current Visit: Yes (6) Morbid obesity with BMI of 45.0-49.9, adult SNOMED Code(s): 360261965, 13646359528825 Code(s): E66.01 - MORBID (SEVERE) OBESITY DUE TO EXCESS CALORIES; Z68.42 - BODY MASS INDEX [BMI] 45.0-49.9, ADULT Status: Chronic Current Visit: No - Problem List Review Problem List Initiated/Reviewed/Updated: Yes - My Orders Last 24 Hours: My Active Orders 07/03/20 10:00 Peripheral IV Discontinue [OM.PC] Routine 07/03/20 11:00 Acetaminophen/HYDROcodone [Mcdonough 325-5 MG] 2 tab PO Q4H PRN - Assessment Assessment:: 07/03/20 Patient doing well and post section FF and bleeding light Up showering today, ambulating without difficulty Pain controlled going better today, mother has a lot of colostrum as well she is expressing CBC looks good, rechecked due to ROM, dysfunctional labor, and concern for possible uterine infection 07/04/20 PP period has been uneventful, pt doing very well FF and bleeding light Pain better controlled with increasing Mcdonough yesterday as needed No stool yet, add stool softener daily Incision approximated and no s/s of infection - Plan Plan:: 07/01/20 Assessment: here with SROM of clear fluid and spontaneous labor SVE last 4-5 cm GBS positive A positive blood type Rubella immune HIV/hep C/B/RPR all NR Category 1 tracing Plan: Expectant management Plans epidural, using nitrous oxide now Anticipate of male infant 07/03/20 Routine cares Ambulate often support Possible discharge tomorrow or Sunday depending on how she is doing 07/04/20 Routine cares Rx for Mcdonough sent as needed Discharge home today 2 week check with surgery and 6 week pp check with me
== END 2020-07-04 13:30 | disposition home or self-care (01) | DRG 788 ==
LOC: JP.OBCHECK 01:04 → JP.OB 02:00 → OBSVTOIN 21:30 → JP.OB 21:30 → JP.MS 23:00
PROVIDERS: ADMIT Nurse Practitioner Family; ATTEND Surgery
PROC: 10D00Z1 Extraction of Products of Conception, Low, Open Approach (ICD-10-PCS; principal; 2020-07-01)
DX: O99.824 Streptococcus B carrier state complicating childbirth (principal); Z3A.40 40 weeks gestation of pregnancy; Z37.0 Single live birth; E66.01 Morbid (severe) obesity due to excess calories; O99.214 Obesity complicating childbirth; O76 Abnormality in fetal heart rate and rhythm complicating labor and delivery; Z20.822 Contact with and (suspected) exposure to COVID-19
CPT/HCPCS: 36415; 51702; 59409; 80048; 80305-QW; 81001; 84112; 85025; 99211; A9270-GY; J0330; J0694; J1100; J2250; J2405; J2540; J2590; J2704; J2710; J2795; J3010; J3105; J3490; J7120; U0002

== ENCOUNTER 2020-10-04 19:12 | Emergency (ER) | payer MEDICAID ==
--- NOTE | 2020-10-04 20:23 | EDM.PDOC ---
ED HPI GENERAL MEDICAL PROBLEM - General Chief Complaint: ENT Problem Stated Complaint: bad toothe ache Time Seen by Provider: 10/04/20 20:00 Source of Information: Reports: Patient, Family History Limitations: Reports: No Limitations - History of Present Illness INITIAL COMMENTS - FREE TEXT/NARRATIVE: 20-year-old female who has had left mandibular tooth pain for the past 4 days, and trying to get into the dental clinic but have not been able to get a call back. It is persistent but no swelling, it hurts to chew. She has had problems with the same place in the past. She has not been to the dentist in at least a few years. She has no allergies. Onset: Gradual Duration: Day(s): (5 or 6 days of pain) Location: Reports: Other (Left mandible) Worsens with: Reports: Other (Chewing or cold exposure) Associated Symptoms: Reports: No Other Symptoms Left Lower Jaw Pain Score (Numeric/FACES): 8 - Related Data Allergies Allergy/AdvReac Type Severity Reaction Status Date / Time No Known Allergies Allergy Verified 07/01/20 02:26 Home Meds: Home Meds Magnesium 250 mg PO DAILY 07/01/20 [History] Vits #93/Iron Fum/FA [ Formula Tablet] 1 each PO DAILY 07/01/20 [History] Norethindrone [Norlyda] 1 tab PO DAILY 10/04/20 [History] Sertraline [Zoloft] 1 tab PO DAILY 10/04/20 [History] Past Medical History HEENT History: Reports: None Cardiovascular History: Reports: None Respiratory History: Reports: None Gastrointestinal History: Reports: None Genitourinary History: Reports: None [employer] History: Reports: Musculoskeletal History: Reports: None Neurological History: Reports: None Psychiatric History: Reports: None Endocrine/Metabolic History: Reports: None Hematologic History: Reports: None Immunologic History: Reports: None Oncologic (Cancer) History: Reports: None Dermatologic History: Reports: None - Infectious Disease History Infectious Disease History: Reports: None - Past Surgical History Head Surgeries/Procedures: Reports: None HEENT Surgical History: Reports: Myringotomy w Tube(s) Cardiovascular Surgical History: Reports: None Respiratory Surgical History: Reports: None Female Surgical History: Reports: Section Endocrine Surgical History: Reports: None Neurological Surgical History: Reports: None Musculoskeletal Surgical History: Reports: None Oncologic Surgical History: Reports: None Dermatological Surgical History: Reports: None Social & Family History - Tobacco Use Tobacco Use Status *Q: Former Tobacco User Years of Tobacco use: 1 Used Tobacco, but Quit: Yes Month/Year Tobacco Last Used: 01/07 - Caffeine Use Caffeine Use: Reports: Coffee, Energy Drinks, Soda, Tea - Recreational Drug Use Recreational Drug Use: Yes Drug Use in Last 12 Months: Yes Recreational Drug Type: Reports: Marijuana/Hashish ED ROS ENT - Review of Systems Review Of Systems: See Below Constitutional: Denies: Fever, Chills HEENT: Reports: Dental Pain Respiratory: Denies: Shortness of Breath Cardiovascular: Denies: Chest Pain GI/Abdominal: Denies: Nausea, Vomiting Neurological: Reports: No Symptoms. Denies: Headache Psychiatric: Reports: No Symptoms ED EXAM, ENT - Physical Exam Exam: See Below Exam Limited By: No Limitations General Appearance: Alert, No Apparent Distress Mouth/Throat: Other ([place] tooth on the left mandible, I believe tooth #17, looks eroded, decayed, and is very tender to percussion. There is no significant surrounding erythema or swelling) Course - Vital Signs Last Recorded V/S: Last Vital Signs Temp 98.2 F 10/04/20 19:31 Pulse 110 H 10/04/20 19:31 Resp 16 10/04/20 19:31 BP 133/85 10/04/20 19:31 Pulse Ox 95 10/04/20 19:31 - Re-Assessments/Exams Free Text/Narrative Re-Assessment/Exam: 10/04/20 20:21 This patient could really benefit from some dental x-rays. She will be used on penicillin 500 4 times daily and given 6 hydrocodone for extra pain control over the next few days. She will continue with the ibuprofen on a regular basis. I wrote a dental referral for Sunday. She can return sooner if swelling, fever, or unable to take the antibiotic due to vomiting. Departure - Departure Time of Disposition: 20:36 Disposition: Home, Self-Care 01 Clinical Impression: Dental abscess - Discharge Information Instructions: Dental Abscess, [id number] Referrals: PCP,None [Primary Care Provider] - Forms: ED Department Discharge Care Plan Goals: Take antibiotic 4 times a day, continue with a regular ibuprofen dose and add stronger pain medication if needed. A work and referral to the dental clinic was written for Sunday. Return sooner if worsening such as fever, swelling, or unable to take the medication due to nausea or vomiting. Sepsis Event Note (ED) - Evaluation Sepsis Screening Result: No Definite Risk - Focused Exam Vital Signs: Vital Signs Temp Pulse Resp BP Pulse Ox 10/04/20 19:31 98.2 F 110 H 16 133/85 95
== END 2020-10-04 20:37 | disposition home or self-care (01) ==
LOC: JP.ED 19:12
DX: K04.7 Periapical abscess without sinus (principal)
CPT/HCPCS: 99282; 99283

== ENCOUNTER 2021-12-22 05:38 | Inpatient (IN) | payer MEDICAID ==
[2021-12-22] MEDS ORDERED: Lactated Ringers 1,000 ML IV SCH (06:00)
[2021-12-22] MEDS ORDERED: Misoprostol 200 MCG Tab ONE (06:41)
[2021-12-22] MEDS ORDERED: Oxytocin 10 Units/1 ML SDV ONE ×2 (06:41→07:57)
[2021-12-22] MEDS ORDERED: Methylergonovine 0.2 MG/1 ML Amp ONE (06:42)
[2021-12-22] MEDS ORDERED: Carboprost Tromethamine 250 MCG/1 ML Amp ONE (06:42)
[2021-12-22 06:51] LABS: ESTIMATED GFR 130 mL/min (>60)
[2021-12-22] MEDS ORDERED: ceFAZolin 2 GM in Sodium Chloride 0.9% 100 ML IV ONE (07:30)
[2021-12-22] MEDS ORDERED: ceFAZolin 2 GM in Premix Bag 1 BAG IV ONE (07:30)
[2021-12-22] MEDS ORDERED: ceFAZolin 1 GM Vial ONE (07:48)
[2021-12-22] MEDS ORDERED: ePHEDrine 50 MG/ML SDV ONE (07:49)
[2021-12-22] MEDS ORDERED: Lactated Ringers 1,000 ML ONE (07:57)
[2021-12-22] MEDS ORDERED: Ondansetron 4 MG/2 ML SDV ONE (08:00)
[2021-12-22] MEDS ORDERED: Tranexamic Acid 1,000 MG in Sodium Chloride 0.9% 50 ML IV ONE (08:00)
[2021-12-22] MEDS ORDERED: fentaNYL 100 MCG/2 ML SDV ONE (08:18)
[2021-12-22] MEDS ORDERED: Promethazine 12.5 MG in Sodium Chloride 0.9% 50 ML IV PRN ×2 (10:17→10:52)
[2021-12-22] MEDS ORDERED: Meperidine PF 50 MG/ML Syringe IVPUSH ONE (10:45)
[2021-12-22] MEDS ORDERED: diphenhydrAMINE 25 MG Cap PO PRN (10:52)
[2021-12-22] MEDS ORDERED: Acetaminophen 1,000 MG in Premix Bag 1 BAG IV PRN (10:52)
[2021-12-22] MEDS ORDERED: Meperidine PF 25 MG/ML Syringe IVPUSH PRN ×2 (10:52→21:26)
[2021-12-22] MEDS ORDERED: Ondansetron 4 MG Tab.DIS PO PRN (10:52)
[2021-12-22] MEDS: Docusate Sodium 100 MG Cap PO SCH ×2 (11:51→21:55)
[2021-12-22] MEDS ORDERED: Meperidine PF 25 MG/ML Syringe IVPUSH ONE (13:02)
[2021-12-22] MEDS: Lactated Ringers 1,000 ML IV SCH ×2 (13:46→22:01)
[2021-12-22] MEDS: Ibuprofen 600 MG Tab PO SCH (17:07)
[2021-12-23] MEDS: Ibuprofen 600 MG Tab PO SCH ×5 (00:23→23:08)
[2021-12-23] MEDS: Lactated Ringers 1,000 ML IV SCH (05:57)
[2021-12-23] MEDS ORDERED: Acetaminophen 325 MG Tab, 50 Tab Bulk Bottle PO PRN (08:39)
[2021-12-23] MEDS: Docusate Sodium 100 MG Cap PO SCH ×2 (08:56→20:27)
[2021-12-24] MEDS: Ibuprofen 600 MG Tab PO SCH ×2 (06:18→11:12)
[2021-12-24] MEDS: Docusate Sodium 100 MG Cap PO SCH (11:11)
== END 2021-12-24 11:58 | disposition home or self-care (01) | DRG 788 ==
LOC: JP.SDS 05:38 → JP.MS 08:10
PROVIDERS: ADMIT Obstetrics & Gynecology; ATTEND Obstetrics & Gynecology
PROC: 10D00Z1 Extraction of Products of Conception, Low, Open Approach (ICD-10-PCS; principal; 2021-12-22)
DX: O34.211 Maternal care for low transverse scar from previous cesarean delivery (principal); Z37.0 Single live birth; Z3A.39 39 weeks gestation of pregnancy
CPT/HCPCS: 36415; 80053; 80305-QW; 85027; 86850; 86900; 86901; A9270-GY; J0131; J0690; J2175; J2210; J2405; J2550; J2590; J3010; J3490; J7120

== ENCOUNTER 2023-01-24 08:04 | Day surgery (SDC) | payer MEDICAID ==
[~2023-01-24 08:04] MED LIST: Midazolam 1 MG/ML 2 ML SDV ONE; Propofol 200 MG/20 ML SDV ONE; fentaNYL 100 MCG/2 ML SDV ONE
[2023-01-24] MEDS ORDERED: Lactated Ringers 1,000 ML IV SCH (08:30)
== END 2023-01-24 11:44 | disposition home or self-care (01) ==
LOC: JP.SDS 08:04
PROVIDERS: ATTEND Student in an Organized Health Care Education/Training Program
DX: K21.9 Gastro-esophageal reflux disease without esophagitis (principal); K29.50 Unspecified chronic gastritis without bleeding; E66.9 Obesity, unspecified; Z68.35 Body mass index [BMI] 35.0-35.9, adult
CPT/HCPCS: 43239; 81025; 88305; J2250; J2704; J3010; J7120

== ENCOUNTER 2023-04-25 15:06 | Emergency (ER) | payer MEDICAID ==
[2023-04-25] MEDS ORDERED: Sodium Chloride 0.9% 10 ML Syringe FLUSH PRN (15:49)
[2023-04-25] MEDS ORDERED: diphenhydrAMINE 50 MG/ML SDV IVPUSH ONE (15:50)
[2023-04-25] MEDS ORDERED: Prochlorperazine 10 MG/2 ML SDV IVPUSH ONE (15:50)
[2023-04-25] MEDS ORDERED: Ketorolac 30 MG/ML SDV IVPUSH ONE (15:50)
[2023-04-25] MEDS ORDERED: fentaNYL 100 MCG/2 ML SDV IVPUSH ONE (15:53)
[2023-04-25] MEDS ORDERED: Sodium Chloride 0.9% 1,000 ML IV SCH (16:00)
[2023-04-25 16:03] LABS: BASOPHILS ABSOLUTE AUTO 0.05 K/uL (0.00-0.10); BASOPHILS PERCENT AUTO 0.3 % (0.1-1.3); EOSINOPHILS ABSOLUTE AUTO 0.31 K/uL (0.00-0.40); EOSINOPHILS PERCENT AUTO 2.1 % (0.0-5.4); HEMATOCRIT 43.4 % (34.3-46.0); HEMOGLOBIN 14.8 g/dL (11.2-15.5); IMMATURE GRAN ABSOLUTE AUTO 0.05 K/uL (0.00-0.23); IMMATURE GRAN PERCENT AUTO 0.3 % (0.0-0.7); LYMPHOCYTES ABSOLUTE AUTO 1.34 K/uL (0.8-3.3); MEAN CORPUSCULAR HEMOGLOBIN 28.8 pg (31.6-35.5); MEAN CORPUSCULAR HGB CONC 34.1 g/dL (31.6-35.5); MEAN CORPUSCULAR VOLUME 84.6 fL (81.4-99.0); MONOCYTES ABSOLUTE AUTO 0.63 K/uL (0.20-0.90); MONOCYTES PERCENT AUTO 4.2 % (3.3-12.6); NEUTROPHILS ABSOLUTE AUTO 12.46 K/uL (1.0-7.6); NEUTROPHILS PERCENT AUTO 84.1 % (40.0-78.1); PLATELET COUNT,PLT 233 K/uL (130-375); RED BLOOD CELL COUNT 5.13 M/uL (3.77-5.24); WHITE BLOOD CELL COUNT,WBC 14.8 K/uL (3.2-11.0)
[2023-04-25 16:18] LABS: ANION GAP 12.5 mmol/L (5.0-14.0); CALCIUM 9.1 mg/dL (8.5-10.1); CREATININE 0.8 mg/dL (0.6-1.0); EST CRCL DRUG DOSING (CG) 93.64 mL/min; POTASSIUM,K 3.5 mmol/L (3.6-5.2)
[2023-04-25 19:06] LABS: COLOR,CSF COLORLESS (COLORLESS); TUBE NUMBER,CSF 1; TUBE VOLUME,CSF 1 mls
[2023-04-25 19:06] LABS: APPEARANCE CSF CLEAR (CLEAR); COLOR,CSF COLORLESS (COLORLESS); POLYMORPHONUCLEAR, CSF 0 % (0-7); RBC,CSF 1 /ul (0-0); TUBE NUMBER,CSF 3; TUBE VOLUME,CSF 1 mls; WBC,CSF 2 /ul (0-5)
[2023-04-25 19:07] LABS: APPEARANCE CSF CLEAR (CLEAR); MONONUCLEAR, CSF 100 % (54-100); POLYMORPHONUCLEAR, CSF 0 % (0-7); RBC,CSF 11 /ul (0-0); WBC,CSF 4 /ul (0-5)
[2023-04-25 19:07] LABS: MONONUCLEAR, CSF 100 % (54-100)
[2023-04-25 19:08] LABS: APPEARANCE CSF CLEAR (CLEAR); COLOR,CSF COLORLESS (COLORLESS); POLYMORPHONUCLEAR, CSF 0 % (0-7); RBC,CSF 1 /ul (0-0); TUBE NUMBER,CSF 4; TUBE VOLUME,CSF 1 mls; WBC,CSF 1 /ul (0-5)
[2023-04-25 19:09] LABS: MONONUCLEAR, CSF 100 % (54-100)
[2023-04-25 19:09] LABS: APPEARANCE CSF CLEAR (CLEAR); COLOR,CSF COLORLESS (COLORLESS); MONONUCLEAR, CSF 100 % (54-100); POLYMORPHONUCLEAR, CSF 0 % (0-7); RBC,CSF 1 /ul (0-0); TUBE NUMBER,CSF 2; TUBE VOLUME,CSF 1 mls; WBC,CSF 2 /ul (0-5)
== END 2023-04-25 18:55 | disposition home or self-care (01) ==
LOC: JP.ED 15:06
DX: G44.82 Headache associated with sexual activity (principal)
CPT/HCPCS: 36415; 70450; 80048; 83605; 85025; 89050; 96361; 96374; 96375; 99284; J0780; J1200; J3010; J7030